=== PATIENT | female | born 1965 | race Two or more races ===

== ENCOUNTER 2018-09-29 16:15 | Emergency (ER) | payer OTHER ==
[~2018-09-29] VITALS: Ht 162.6 cm; Wt 63.5 kg
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
[2018-09-29 16:50] VITALS: BP 136/70
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
[2018-09-29] MEDS ORDERED: IBUPROFEN600 MG ORAL (17:56)
[2018-09-29] MEDS ORDERED: ROBAXIN-750750 MG PO (17:56)
--- NOTE | 2018-09-29 18:11 | NUR ---
ED Nurse Note: pt cleared to be d/c per ER provider, pt discharge and aftercare instruction provided w/ prescription, pt education done via discussion and handout, pt advised to follow up with pcp or return to ed if changes in condition, pt verbalized understanding and agrees with plan, vss, ambulatory w/ steady gait, left w/ all belongings, pt accompanied by spouse.
[2018-09-29 18:12] VITALS: BP 113/79
--- NOTE | 2018-09-29 18:38 | Diagnostic Imaging Report ---
EXAM: XR Left Wrist Complete, 3 or More Views CLINICAL HISTORY: PAIN TECHNIQUE: Frontal, lateral and oblique views of the left wrist. COMPARISON: No relevant prior studies available. FINDINGS: Bones/joints: No acute displaced fracture or dislocation. Soft tissues: Unremarkable. No radiopaque foreign body. IMPRESSION: No acute displaced fracture or dislocation.
== END 2018-09-29 18:12 | disposition home or self-care (01) ==
LOC: EMR 17:02
DX: S63.502A Unspecified sprain of left wrist, initial encounter (principal); S16.1XXA Strain of muscle, fascia and tendon at neck level, initial encounter; S39.012A Strain of muscle, fascia and tendon of lower back, initial encounter; V44.5XXA Car driver injured in collision with heavy transport vehicle or bus in traffic accident, initial encounter; Y92.9 Unspecified place or not applicable
CPT/HCPCS: 99283